=== PATIENT | male | born 1955 | race Caucasian/White ===

== ENCOUNTER 2016-08-08 09:52 | Day surgery (SDC) | payer OTHER ==
[~2016-08-08 09:52] MED LIST: CETI10TA16 PO; CIPR250T30 PO; FENTANYL PF 100 MCG/2 ML VIAL. IV PRN; HYDROMORPHONE 2 MG/ML VIAL. IV PRN; IBUP200T77 PO; IV RINGERS,LACTATED 1000ML 1,000 ML IV SCH; LEVO75TA PO; LIDOCAINE 1% 1 ML SYRINGE. ID PRN; MELA3TAB PO; MORPHINE SULFATE 2 MG/ML DISP.SYRIN. IV PRN; MV,M1TAB PO; OMEP40CA5 PO; ONDANSETRON PF 4 MG/2 ML VIAL. IV PRN; OXYC-323 PO; PROCHLORPERAZINE 10 MG/2 ML VIAL. IV PRN; TAMS0.4C97 PO; VENL75CA PO; ZOLP10TA PO
[2016-08-08] MEDS ORDERED: ONDANSETRON PF 4 MG/2 ML VIAL. ONE (11:02)
[2016-08-08] MEDS ORDERED: PROPOFOL 20 ML IV ONE (11:02)
[2016-08-08] MEDS ORDERED: DEXAMETHASONE SOD PHOS 20 MG/5 ML VIAL. ONE (11:02)
[2016-08-08] MEDS ORDERED: LIDOCAINE 2% 100 MG/5 ML DISP.SYRIN. ONE (11:02)
[2016-08-08] MEDS ORDERED: FENTANYL PF 100 MCG/2 ML VIAL. ONE (11:02)
[2016-08-08] MEDS ORDERED: SEVOFLURANE > 120 MINUTES. IH ONE (11:02)
[2016-08-08 11:03] LABS: BASO % 1 % (0-3); EOS % 3 % (0-3); HEMATOCRIT 44.2 % (39.0-53.0); HEMOGLOBIN 15.3 g/dL (13.0-17.5); LYMPH # 1.6 x10^3/uL (1.0-4.8); LYMPH % 28 % (24-48); MEAN CORPUSCULAR HEMOGLOBIN 31 pg (25-35); MEAN CORPUSCULAR HGB CONC 35 g/dL (31-37); MEAN CORPUSCULAR VOLUME 89 fL (79-100); MONO % 9 % (0-9); NEUT % 60 % (31-73); PLATELET COUNT 176 x10^3/uL (140-400); RED BLOOD COUNT 4.97 x10^6/uL (4.30-5.70); RED CELL DISTRIBUTION WIDTH 12.5 % (11.5-14.5); WHITE BLOOD COUNT 5.7 x10^3/uL (4.0-11.0)
[2016-08-08 11:13] LABS: CALCIUM 8.7 mg/dL (8.5-10.1); CREATININE 1.1 mg/dL (0.7-1.3); GFR 67.6; POTASSIUM 4.3 mmol/L (3.5-5.1)
--- NOTE | 2016-08-08 12:06 | PDOC4 ---
Operative Note Operative Note Preop dx: elevated PSA Post op dx: elevated PSA Procedure: TRUS Biopsy Antibiotics: Cipro Path: prosate biopsies - 12 cores EBL: 10ml Findings: 77 gram prostate, hematuria at termination of case requiring orellana catheter BLADIMIR ROOT MD Aug 08, 2016 12:06
--- NOTE | 2016-08-08 12:09 | PDOC3 ---
Discharge Summary* Date of Admission: Aug 08, 2016 Date of Discharge: Aug 08, 2016 Admitting Diagnosis Elevated PSA Final Diagnosis Elevated PSA Procedures TRUS Biopsy Brief Hospital Course Mr. Jolley is a 61 old male who presented with elevated PSA. Patient underwent a TRUS biopsy. Patient had hematuria at end of case requiring a orellana catheter with light pink urine. Disposition/Orders: D/C to Home CONDITION AT DISCHARGE: Stable Diet: Regular Scheduled Cetirizine Hcl (Cetirizine Hcl) 1 TAB PO DAILY (Reported) Ciprofloxacin Hcl (Cipro) 1 TAB PO BID (Reported) Levothyroxine Sodium (Synthroid) 75 MCG PO DAILYAC (Reported) Melatonin (Melatonin) 3 TAB PO QHS (Reported) Mv,Minerals/Fa/Lycopene/Ginkgo (Men's 50+ Daily Formula Tablet) 1 EACH PO DAILY (Reported) Omeprazole (Omeprazole) 1 CAP PO QHS (Reported) Tamsulosin Hcl (Flomax) 0.4 MG PO BID (Reported) Scheduled PRN Zolpidem Tartrate (Ambien) 10 MG PO HS PRN PRN INSOMNIA (Reported) FOLLOW UP APPOINTMENT: 1 day in Urology clinic for trial to void Time Spent Total time spent with patient [] minutes for coordination of care, counseling, and education. BLADIMIR ROOT MD Aug 08, 2016 12:09
[2016-08-08] MEDS ORDERED: NON FORMULARY ITEM (Zolpidem Tartrate (Ambien) 10 MG) PO PRN (12:15)
[2016-08-08 12:46] VITALS: BP 139/72
--- NOTE | 2016-08-08 13:14 | OP ---
DATE OF SURGERY: 08/08/2016 PRIMARY SURGEON: Bladimir Root MD PREOPERATIVE DIAGNOSIS: Elevated PSA. POSTOPERATIVE DIAGNOSIS: Elevated PSA. PROCEDURE: Transrectal ultrasound-guided prostate biopsy. ANESTHESIA: General. ANTIBIOTICS: Cipro. SPECIMENS: Twelve-core biopsy. ESTIMATED BLOOD LOSS: 5 mL. INDICATIONS: This 61-year-old gentleman seen in Urology Clinic for history of elevated PSA and was consented for transrectal ultrasound-guided biopsy. Informed consent was obtained. All questions were answered in clinic. DESCRIPTION OF PROCEDURE: The patient was met in the preop holding area, consent was reviewed. Antibiotics were verified, medical record number and procedure was verified as well. DESCRIPTION OF PROCEDURE: The patient was taken to the operative suite, placed in the supine position and had SCDs on and functional prior to induction. He was induced using general anesthesia. He was prepped and draped in the usual manner in the lateral decubitus position with left side down. Ultrasound probe was advanced into the rectum. Prostate was measured and noting grams. Transrectal ultrasound guided biopsy was performed, 12 core, proceeded with the right hand side. There were 2 cores, the base were taken as well as 2 of the mid and then 2 of the apex followed by left hand side whereas 2 of the base, 2 of the mid and then 2 of the apex. At the end of the case, rolled the patient on his back. It was noted the patient had hematuria from the urethra. Decision was then made to place a 22-Belgian catheter. Bladder was irrigated with light pink urine, 10 mL was placed in the balloon. The decision was made to keep the [place] catheter. The patient will go home with [place] catheter overnight and come into the clinic following day for a trial to void. The patient tolerated the procedure well and was awakened in the operative suite and taken to PACU in stable condition. BLADIMIR ROOT MD DR: /michael JOB#: [id number] / [id number]
[2016-08-08] MEDS ORDERED: CIPROFLOXACIN HCL 250 MG TABLET PO SCH (21:00)
[2016-08-08] MEDS ORDERED: NON FORMULARY ITEM (Omeprazole 1 CAP) PO SCH (21:00)
[2016-08-08] MEDS ORDERED: TAMSULOSIN 0.4 MG CAP.ER.24H. PO SCH (21:00)
[2016-08-08] MEDS ORDERED: MELATONIN PO SCH (21:00)
[2016-08-09] MEDS ORDERED: LEVOTHYROXINE 75 MCG TABLET PO SCH (07:30)
[2016-08-09] MEDS ORDERED: MV MINERALS PO SCH (09:00)
[2016-08-09] MEDS ORDERED: LYCOPENE PO SCH (09:00)
[2016-08-09] MEDS ORDERED: GINKGO PO SCH (09:00)
[2016-08-09] MEDS ORDERED: CETIRIZINE HCL 10 MG TABLET PO SCH (09:00)
[2016-08-09] MEDS ORDERED: [UNRECOGNIZED DRUG - OTHER] PO SCH (09:00)
--- NOTE | 2016-08-09 15:14 | PATHOLOGY ---
PATHOLOGY REPORT * * * * * * * * FINAL DIAGNOSIS: A. Prostate tissue, right apex prostate needle biopsy: - Focal glandular atrophy and chronic inflammation. B. Prostate tissue, right mid prostate needle biopsy: - Focal glandular atrophy and chronic inflammation. C. Prostate tissue, right base prostate needle biopsy: - Focal glandular atrophy and chronic inflammation. D. Prostate tissue, left apex prostate needle biopsy: - Focal glandular atrophy and chronic inflammation. E. Prostate tissue, left mid prostate needle biopsy: - Focal glandular atrophy and chronic inflammation. F. Prostate tissue, left base prostate needle biopsy: - Focal glandular atrophy and chronic inflammation. COMMENT: Sections of the prostate needle biopsies appear similar and reveal segments of prostatic glandular and fibromuscular tissue showing foci of glandular atrophy and mild chronic inflammation. There is no evidence of malignancy. (JPM:; d/t: 08/09/16) REPORT ELECTRONICALLY SIGNED BY: Shaji Junior M.D. DATE/TIME: 08/09/2016 15:14 * * * * * * * * GROSS PATHOLOGY: A. Submitted in formalin, labeled "Ronald Shola, right apex," are two needle cores of piedra tissue measuring 0.9 and 2.1 cm in length, by less than 0.1 cm in diameter. Tissue is submitted in toto in cassette A1. B. Submitted in formalin, labeled "Ronald Shola, right mid," are two needle cores of piedra tissue measuring 2.1 and 2.3 cm in length, by less than 0.1 cm in diameter. Tissue is submitted in toto in cassette B1. C. Submitted in formalin, labeled "Ronald Shola, right base," are two needle cores of piedra tissue measuring 1.1 and 2.2 cm in length, by less than 0.1 cm in diameter. Tissue is submitted in toto in cassette C1. D. Submitted in formalin, labeled "Ronald Shola, left apex," are two needle cores of piedra tissue measuring 1.7 and 2.2 cm in length, by less than 0.1 cm in diameter. Tissue is submitted in toto in cassette D1. E. Submitted in formalin, labeled "Ronald Shola, left mid," are two needle cores of piedra tissue measuring 2.2 and 2.3 cm in length, by less than 0.1 cm in diameter. Tissue is submitted in toto in cassette E1. F. Submitted in formalin, labeled "Ronald Evans, left base," are two needle cores of piedra tissue measuring 1.6 and 1.8 cm in length, by less than 0.1 cm in diameter. Tissue submitted in toto in cassette F1. ([facility]AA; 08/08/2016) INITIAL CPT CODE(S): A; 44642 B; 50885 C; 13997 D; 32787 E; 33661 F; 65737 Professional services performed [place] [facility] [place] [address] Technical services performed by [facility] at [address] [place] [address], [facility], [address], [place] [address]. SPECIMEN(S) RECEIVED: A.Right apex prostate, needle biopsy B.Right mid prostate, needle biopsy C.Right base prostate, needle biopsy D.Left apex prostate, needle biopsy E.Left mid prostate, needle biopsy F.Left base prostate, needle biopsy CLINICAL HISTORY: Elevated PSA PATIENT: RONALD EVANS /AGE: 1207/08/1955 (Age: 61) PATIENT #: [id number] ALT CASE #: SPECIMEN COLLECTION DATE: 08/08/2016 SPECIMEN RECEIVED DATE: 08/08/2016 [facility] - [id number] [place] [address] - PHONE: [phone] * * * END OF REPORT * * *
== END 2016-08-08 13:12 | disposition home or self-care (01) ==
LOC: SURG 09:52
PROVIDERS: ATTEND Urology
DX: R97.20 Elevated prostate specific antigen [PSA] (principal); R31.9 Hematuria, unspecified; K21.9 Gastro-esophageal reflux disease without esophagitis; E03.9 Hypothyroidism, unspecified; F32.9 Major depressive disorder, single episode, unspecified; F17.200 Nicotine dependence, unspecified, uncomplicated; E66.9 Obesity, unspecified; Z72.89 Other problems related to lifestyle; Z98.41 Cataract extraction status, right eye
CPT/HCPCS: 36415; 51702; 55700; 76942; 80048; 85027; 88305; C1887; J1100; J2405; J2704; J3010; 76998